=== PATIENT | female | born 1985 | race Caucasian/White ===

== ENCOUNTER → 2016-12-04 | Outpatient (CLI) | payer OTHER ==
--- NOTE | 2016-12-04 14:13 | DIAGNOSTIC IMAGING REPORT ---
RIGHT LOWER EXTREMITY VENOUS DOPPLER CLINICAL HISTORY: Right foot phlebitis. COMPARISON STUDY: No previous studies for comparison. TECHNIQUE: Sonography of the deep venous system of the right lower extremity was performed. Compression and augmentation were evaluated. FINDINGS: The common femoral, superficial femoral and popliteal veins were compressible. Augmentation was normal. Flow was shown within the deep calf vessels. IMPRESSION: No evidence of deep venous thrombus within the right lower extremity. Electronically signed by: Pancho Wilkerson M.D. 12/04/2016 2:11 PM Dictated Date/Time: 12/04/2016 2:10 PM
== END | disposition home or self-care (01) ==
LOC: C.ULTR 13:07
PROVIDERS: ATTEND Emergency Medicine
DX: I80.9 Phlebitis and thrombophlebitis of unspecified site (principal)